=== PATIENT | female | born 1935 | race Caucasian/White ===

== ENCOUNTER 2017-05-24 14:22 | Day surgery (SDC) | payer MEDICARE ==
[~2017-05-24 14:22] MED LIST: HYDR-2768; LEVO.05
[2017-05-24 14:55] VITALS: BP 123/82; PULSE 59; RESP 20; TEMP 97.4; O2SAT 93
[2017-05-24] MEDS ORDERED: ASPI81CH37 CHEW (15:16)
[2017-05-24] MEDS ORDERED: ANAS1TAB PO (15:16)
[2017-05-24] MEDS ORDERED: LEVO75TA3 PO (15:16)
[2017-05-24] MEDS ORDERED: PROP10TA6 PO (15:16)
--- NOTE | 2017-05-25 08:52 | RADRPT ---
EXAM DATE/TIME: 05/24/2017 15:19 [facility] COMPARISON : No previous studies available for comparison. INDICATIONS : Abdominal pain. Patient has known vascular disease with a stenosis of the SMA. Does not report classi c findings of mesenteric ischemia, however. OBJECTIVE: Temperature: 97.4 Heart Rate: 59 Blood Pressure: 123/82 Respiratory: 20 Oximetry: 93 PNEUMONIA VACCINE: NO HISTORY OF PRESENT ILLNESS: ? PAST MEDICAL HISTORY : 1. Hypertension. 2. Arthritis. PAST SURGICAL HISTORY : 1. Appendectomy. 2. Hysterectomy. 3. Cholecystectomy. 4. Carotid endarterectomy. right 5. right iliac stent 6. cataract removal SOCIAL HISTORY : ALLERGIES: 1. Sulfa MEDICATIONS: 1. Lciksjp28 mg q.d. 2. levothyroxine 75 mcg q.d. 3. propranolol 10 mg q.d. 4. anastrozole 1 mg q.d. PHYSICAL EXAMINATION: Frail, thin 81-year-old in no acute distress IMAGING STUDIES: Patient's imaging studies are over 10 years old and currently not available for comparison. As Jakob Her was a patient of mine at that time, I do remember that she had rather extensive vascular disea se and has since undergone right carotid endarterectomy for crescendo TIAs. Patient also had peripher al vascular disease and a high-grade stenosis of the SMA according to my report from the mid 1999. ASSESSMENT: Patient has definitely lost weight in the 10 year interval since I last saw her. Patient herself denies postprandial abdominal pain but I believe has some difficulty recalling recent events. Her daughters claims that the abdominal pain has gotten to a point where it is affecting her health and weight. I have asked the daughter to try to determine the relationship between eating and abdominal discomfort to aid in the decision making process. PLAN: CTA of the abdomen to assess mesenteric vessels. Previous studies are approximately 10 years old. Daughter while help assess the relationship of eating and abdominal pain. 1. Will get back with the patient and her daughter once the CT is available. 2. Discussed the plan of action with Dr. Albino Lund from vascular surgery. TIME SPENT: 30 minutes Hayden Jin MD on May 25, 2017 at 8:38 Board Certified Radiologist. This report was verified electronically.
== END 2017-05-24 16:28 | disposition home or self-care (01) ==
LOC: HROP 14:22 → HRIP 14:25 → HROP 16:28
PROVIDERS: ATTEND Surgery Vascular Surgery
DX: R10.9 Unspecified abdominal pain (principal); Z86.79 Personal history of other diseases of the circulatory system
CPT/HCPCS: 99213; G0463

== ENCOUNTER 2017-07-14 08:02 | Inpatient (IN) | payer MEDICARE ==
[~2017-07-14] VITALS: Ht 165.1 cm; Wt 61.3 kg
[2017-07-14] VITALS (7 sets, daily range): BP systolic 128–155; BP diastolic 73–76; PULSE 59–73; RESP 16–20; TEMP 97.4–97.8; O2SAT 96–97
[~2017-07-14 08:02] MED LIST changes: +ANAS1TAB PO; +ASPI81CH6 CHEW; -HYDR-2768; -LEVO.05; +LEVO75TA3 PO; +PROP10TA6 PO
[2017-07-14] MEDS ORDERED: IODIXANOL 320 MG/ML 50 ML VIAL (for RAD SPEC) I-ARTERIAL ONE (08:03)
[2017-07-14] MEDS ORDERED: GABA100C4 PO (09:21)
[2017-07-14] MEDS ORDERED: SODIUM CHLOR 0.9% 1000 ML INJ 1,000 ML IV SCH (09:30)
[2017-07-14 09:32] LABS: BASOPHIL % 0.8 % (0.0-2.0); EOSINOPHIL # 0.1 TH/MM3 (0-0.4); EOSINOPHIL % 2.3 % (0.0-4.0); HEMATOCRIT 38.9 % (35.0-46.0); HEMO FLAGS DIFF FINAL; LYMPH % 23.7 % (9.0-44.0); LYMPHOCYTE # 1.4 TH/MM3 (1.0-4.8); MEAN CELL VOLUME 98.6 FL (80.0-100.0); MEAN CORPUSCULAR HEMOGLOBIN 33.1 PG (27.0-34.0); MEAN CORPUSCULAR HGB CONC 33.6 % (32.0-36.0); MONO % 7.6 % (0.0-8.0); NEUT % 65.6 % (16.0-70.0); PLATELET COUNT 202 TH/MM3 (150-450); RED BLOOD COUNT 3.94 MIL/MM3 (4.00-5.30); RED CELL DISTRIBUTION WIDTH 15.7 % (11.6-17.2); WHITE BLOOD COUNT 6.1 TH/MM3 (4.0-11.0)
[2017-07-14 09:40] LABS: APTT (PATIENT) 24.6 SEC (24.3-30.1); PROTHROMBIN TIME - PATIENT 10.6 SEC (9.8-11.6)
[2017-07-14 09:54] LABS: BICARBONATE 25.7 MEQ/L (21.0-32.0); POTASSIUM 3.5 MEQ/L (3.5-5.1)
[2017-07-14] MEDS ORDERED: MIDAZOLAM HCL 5 MG/5 ML VIAL ONE (11:07)
[2017-07-14] MEDS ORDERED: MIDAZOLAM HCL 2 MG/2 ML VIAL ONE (11:57)
[2017-07-14] MEDS ORDERED: HEPARIN SODIUM - IV 10,000 UNITS/10 ML VIAL ONE (11:59)
[2017-07-14] MEDS ORDERED: HEPARIN-D5W 25,000 U/250 ML 250 ML ONE (12:26)
[2017-07-14] MEDS: HEPARIN INJ 1,000 UNITS in SODIUM CHLORID 0.9% 500 ML INJ 500 ML I-ARTERIAL SCH (12:45)
[2017-07-14] MEDS ORDERED: MORPHINE SULFATE 4 MG/ML INJ IV PUSH PRN (12:45)
[2017-07-14] MEDS ORDERED: ONDANSETRON HCL 4 MG/2 ML VIAL IV PUSH PRN (12:45)
[2017-07-14] MEDS ORDERED: HEPARIN INJ 1,000 UNITS in SODIUM CHLORID 0.9% 500 ML INJ 500 ML IART PRN (12:45)
[2017-07-14] MEDS ORDERED: HEPARIN INJ 1,000 UNITS in SODIUM CHLORID 0.9% 500 ML INJ 500 ML IV PRN (12:45)
[2017-07-14] MEDS ORDERED: HEPARIN-D5W 25,000 U/250 ML 250 ML IV SCH (12:45)
--- NOTE | 2017-07-14 12:58 | PD.RAD ---
Post Procedure Progress Note Pre Procedure Diagnosis: (1) Claudication of both lower extremities Post Procedure Diagnosis: (1) Claudication of both lower extremities Procedure Date: Jul 14, 2017 Supervising Radiologist: Hayden Jin Proceduralist/Assist: Nata Gomez, RT(R), Lacy Senior, RT(R)(CV) Anesthesia: Local, Analgesia, Conscious Sedation Plan of Activity Patient to Unit: ROPU Patient Condition: Good See PACS Report for procedural detail/treatment Vascular-Arterial Procedure Procedure 1 Procedure Site: Right Leg (Common iliac), Left Leg (Junction of common and external iliac) Procedure(s): Angiogram, Angioplasty (Right iliac stent), Stent Placement ( Left common-external iliac junction), Thrombolysis (Right common iliac) Access Access Site(s): Right Femoral Artery Sheath(s) Remaining: Right Femoral Artery Findings: Right iliac stent occluded. Traversed and common iliac artery angioplastied to 8mm. High grade stenosis junction of left external and common iliac artery post stent and 8mm PRODUCT SAFETY HEAD. > 80 mmHg gradient Hayden Jin MD Jul 14, 2017 12:58
[2017-07-14] MEDS: SODIUM CHLOR 0.9% 1000 ML INJ 1,000 ML IV SCH (13:00)
--- NOTE | 2017-07-14 13:51 | PD.CONS ---
[facility] Service Critical Care Medicine Consult Requested By Dr. Jin Reason for Consult s/p mesenteric and right iliac angiogram/angioplasty s/p stent placement to Left common-external iliac junction for high-grade stenosis, s/p unsuccessful thrombectomy attempt of right iliac stent occlusion Intra arterial TPA infusion Hypertensive urgency Primary Care Physician Non-Staff History of Present Illness Patient is a 82-year-old female with past medical history of right carotid stenosis and carotid endarterectomy, CVA in 2005, severe PAD, history of iliac stent, hypothyroidism, hypertension, COPD and continued smoking who underwent mesenteric and right iliac angiogram/angioplasty today 07/14/17. Patient had stent placement to Left common-external iliac junction, for high- grade stenosis. She has a history of right iliac stent occlusion. Thrombectomy attempt of right iliac stent occlusion was not successful. Patient was started on intra-arterial TPA infusion, along with IV Heparin and was admitted to [facility]. Plan is to attempt stent thrombectomy after 24 hours TPA infusion I evaluated the patient she is comfortable slightly anxious and hypertensive, SBP 190-200. Currently Home medications had been restarted. Place patient on hydralazine 20 mg every 4 hours when necessary IV for hypertension, SBP >160. Because of TPA infusion patient will need tight blood pressure control will also start Cardene if blood pressure is remaining sustained above 160. Review of Systems ROS Limitations: Other (as per HPI) Past Family Social History Allergies: Coded Allergies: Sulfa (Sulfonamide Antibiotics) (Verified Allergy, Unknown, 05/24/17) Past Medical History Right MCA stroke in 2005 Hypothyroidism Hypertension Dyslipidemia Tobacco abuse COPD Right ICA stenosis Past Surgical History Appendectomy Hysterectomy Cholecystectomy Right Carotid endarterectomy Right iliac stent Cataract surgery Reported Medications [id number] mg q.d. Levothyroxine 75 mcg q.d. Propranolol 10 mg q.d. Anastrozole 1 mg q.d. Active Ordered Medications Intra-arterial TPA infusion Family History Not contributory Social History Smokes about half pack of cigarettes daily. Drinks 1-2 glasses of wine daily Physical Exam Vital Signs Vital Signs Date Time Temp Pulse Resp B/P (MAP) Pulse Ox O2 Delivery O2 Flow Rate FiO2 07/14/17 09:07 97 Room Air 07/14/17 08:28 97.4 68 20 128/76 (93) 97 Physical Exam GENERAL: Well-nourished, well-developed female lying in bed, slightly anxious SKIN: Warm and dry. HEAD: Normocephalic. EYES: No scleral icterus. No injection or drainage. NECK: Supple, trachea midline. No JVD or lymphadenopathy. CARDIOVASCULAR: Regular rate and rhythm without murmurs, gallops, or rubs. Hypertensive RESPIRATORY: Breath sounds equal bilaterally. No accessory muscle use. GASTROINTESTINAL: Abdomen soft, non-tender, nondistended. MUSCULOSKELETAL: No cyanosis, or edema. Right groin site without hematoma. Bilateral dorsalis pedis pulses dopplerable NEURO EXAM: Awake alert oriented. No focal deficits Laboratory Laboratory Tests Test 07/14/17 09:17 White Blood Count 6.1 Red Blood Count 3.94 Hemoglobin 13.0 Hematocrit 38.9 Mean Corpuscular Volume 98.6 Mean Corpuscular Hemoglobin 33.1 Mean Corpuscular Hemoglobin Concent 33.6 Red Cell Distribution Width 15.7 Platelet Count 202 Mean Platelet Volume 7.9 Neutrophils (%) (Auto) 65.6 Lymphocytes (%) (Auto) 23.7 Monocytes (%) (Auto) 7.6 Eosinophils (%) (Auto) 2.3 Basophils (%) (Auto) 0.8 Neutrophils # (Auto) 4.0 Lymphocytes # (Auto) 1.4 Monocytes # (Auto) 0.5 Eosinophils # (Auto) 0.1 Basophils # (Auto) 0.0 CBC Comment DIFF FINAL Differential Comment Prothrombin Time 10.6 Prothromb Time International Ratio 1.0 Activated Partial Thromboplast Time 24.6 Blood Urea Nitrogen 22 Creatinine 0.87 Random Glucose 105 Calcium Level 9.6 Sodium Level 142 Potassium Level 3.5 Chloride Level 108 Carbon Dioxide Level 25.7 Anion Gap 8 Estimat Glomerular Filtration Rate 62 Result Diagram: 07/14/1791607/14/1717 Imaging Reviewed Assessment and Plan Assessment and Plan ASSESSMENT: s/p mesenteric and right iliac angiogram/angioplasty s/p stent placement to Left common-external iliac junction for high-grade stenosis, s/p unsuccessful thrombectomy attempt of right iliac stent occlusion Intra arterial TPA infusion Hypertensive urgency Right MCA stroke in 2005 Right ICA stenosis s/p carotid endarterectomy Hypothyroidism Hypertension Dyslipidemia Tobacco abuse COPD PLAN: NEURO: - When necessary morphine for pain control - Monitor neuro status closely while on TPA infusion RESP: - Nasal cannula oxygen if needed - DuoNeb every 6 hours when necessary CV: - Normal saline IV fluids 30 ml per hour - Cardene gtt, Hypralazine IV PRN for SBP >160 - TPA, Heparin gtt per Dr. Jin - Monitor CBC fibrinogen level PTT GI: - Clear liquid diet, IV famotidine : - Monitor renal function closely. Maintain Borges catheter. ID: - Monitor for infection HEME: - Monitor CBC fibrinogen level PTT - Monitor for right groin hematoma ENDO: - Electrolyte replacement protocol. Sliding scale insulin if needed PROPH: - currently on IV TPA/heparin. IV famotidine LINES: - Utilize peripheral IVs CC time 35 min Code Status Full Sailaja Ochoa MD Jul 14, 2017 13:51
[2017-07-14] MEDS ORDERED: POTASSIUM PHOSPHATE MONOBASIC 500 MG TAB PO/TUBE PRN (14:00)
[2017-07-14] MEDS ORDERED: MAGNESIUM SULFATE INJ 4 GM in SODIUM CHLORIDE 0.9% INJ 92 ML IV PRN (14:00)
[2017-07-14] MEDS ORDERED: POTASSIUM PHOSPHATE INJ 30 MMOL in SODIUM CHLOR 0.9% 250 ML INJ 250 ML IV PRN (14:00)
[2017-07-14] MEDS ORDERED: POTASSIUM PHOSPHATE MONOBASIC 500 MG TAB PO PRN (14:00)
[2017-07-14] MEDS ORDERED: POTASSIUM CHLOR 20 MEQ PREMIX 100 ML IV PRN ×2 (14:00)
[2017-07-14] MEDS ORDERED: SODIUM PHOSPHATE INJ 30 MMOL in SODIUM CHLOR 0.9% 250 ML INJ 240 ML IV PRN (14:00)
[2017-07-14] MEDS ORDERED: MAGNESIUM OXIDE 400 MG TAB PO PRN (14:00)
[2017-07-14] MEDS ORDERED: MAGNESIUM SULFATE INJ 2 GM in SODIUM CHLORIDE 0.9% INJ 96 ML IV PRN (14:00)
[2017-07-14] MEDS ORDERED: POTASSIUM CHLOR 40 MEQ PREMIX 100 ML IV PRN ×2 (14:00)
[2017-07-14] MEDS: hydrALAZINE HCL 20 MG/ML VIAL IV PUSH PRN (14:11)
[2017-07-14] MEDS: PROPRANOLOL HCL 10 MG TAB PO SCH (14:45)
[2017-07-14] MEDS ORDERED: niCARdipine INJ 25 MG in SODIUM CHLOR 0.9% 250 ML INJ 240 ML IV PRN (14:45)
[2017-07-14] MEDS ORDERED: RESP: ALBUTEROL 2.5 MG/IPRATROPIUM 0.5 MG NEB (PRN) NEB (15:15)
[2017-07-14] MEDS: THIAMINE INJ 100 MG in SODIUM CHLORIDE 0.9% INJ 100 ML IV SCH (16:38)
[2017-07-14] MEDS: FAMOTIDINE 20 MG/2 ML VIAL IV PUSH SCH ×2 (16:40→21:30)
[2017-07-14 19:09] LABS: AUTOMATED NEUTROPHIL # 4.5 TH/MM3 (1.8-7.7); BASOPHIL % 0.4 % (0.0-2.0); EOSINOPHIL # 0.2 TH/MM3 (0-0.4); EOSINOPHIL % 2.5 % (0.0-4.0); HEMATOCRIT 37.8 % (35.0-46.0); HEMO FLAGS DIFF FINAL; LYMPH % 27.2 % (9.0-44.0); MEAN CELL VOLUME 98.3 FL (80.0-100.0); MEAN CORPUSCULAR HEMOGLOBIN 33.5 PG (27.0-34.0); MEAN CORPUSCULAR HGB CONC 34.1 % (32.0-36.0); MONO % 8.5 % (0.0-8.0); NEUT % 61.4 % (16.0-70.0); PLATELET COUNT 173 TH/MM3 (150-450); RED BLOOD COUNT 3.85 MIL/MM3 (4.00-5.30); RED CELL DISTRIBUTION WIDTH 15.5 % (11.6-17.2); WHITE BLOOD COUNT 7.4 TH/MM3 (4.0-11.0)
[2017-07-14 19:18] LABS: APTT (PATIENT) 29.2 SEC (24.3-30.1)
[2017-07-14] MEDS: GABAPENTIN 100 MG CAP PO SCH (21:29)
[2017-07-14] MEDS: MORPHINE SULFATE 4 MG/ML INJ IV PUSH PRN (21:31)
[2017-07-14] MEDS: CATHFLO ACTIVASE INJ 10 MG in SODIUM CHLORID 0.9% 500 ML INJ 500 ML I-ARTERIAL PRN (21:34)
[2017-07-15] VITALS (13 sets, daily range): BP systolic 105–145; BP diastolic 55–83; PULSE 59–92; RESP 16–20; TEMP 97.3–98; O2SAT 80–100
[2017-07-15 01:17] LABS: AUTOMATED NEUTROPHIL # 4.7 TH/MM3 (1.8-7.7); BASOPHIL # 0.1 TH/MM3 (0-0.2); BASOPHIL % 0.8 % (0.0-2.0); EOSINOPHIL # 0.1 TH/MM3 (0-0.4); EOSINOPHIL % 2.1 % (0.0-4.0); HEMATOCRIT 32.4 % (35.0-46.0); HEMO FLAGS DIFF FINAL; LYMPH % 21.3 % (9.0-44.0); LYMPHOCYTE # 1.5 TH/MM3 (1.0-4.8); MEAN CELL VOLUME 97.6 FL (80.0-100.0); MEAN CORPUSCULAR HEMOGLOBIN 33.5 PG (27.0-34.0); MEAN CORPUSCULAR HGB CONC 34.3 % (32.0-36.0); MONO % 7.9 % (0.0-8.0); NEUT % 67.9 % (16.0-70.0); PLATELET COUNT 162 TH/MM3 (150-450); RED BLOOD COUNT 3.33 MIL/MM3 (4.00-5.30); RED CELL DISTRIBUTION WIDTH 15.1 % (11.6-17.2); WHITE BLOOD COUNT 6.9 TH/MM3 (4.0-11.0)
[2017-07-15 01:48] LABS: APTT (PATIENT) 29.6 SEC (24.3-30.1)
[2017-07-15] MEDS: hydrALAZINE HCL 20 MG/ML VIAL IV PUSH PRN (05:03)
[2017-07-15] MEDS: LEVOTHYROXINE SODIUM 75 MCG TAB PO SCH (05:40)
[2017-07-15] MEDS: SODIUM CHLOR 0.9% 1000 ML INJ 1,000 ML IV SCH (06:01)
[2017-07-15] MEDS: MORPHINE SULFATE 4 MG/ML INJ IV PUSH PRN (06:14)
[2017-07-15] MEDS: CATHFLO ACTIVASE INJ 10 MG in SODIUM CHLORID 0.9% 500 ML INJ 500 ML I-ARTERIAL PRN (06:57)
[2017-07-15 07:15] LABS: APTT (PATIENT) 29.2 SEC (24.3-30.1)
[2017-07-15 07:53] LABS: AUTOMATED NEUTROPHIL # 5.8 TH/MM3 (1.8-7.7); BASOPHIL % 0.6 % (0.0-2.0); EOSINOPHIL # 0.1 TH/MM3 (0-0.4); EOSINOPHIL % 0.8 % (0.0-4.0); HEMATOCRIT 32.2 % (35.0-46.0); HEMO FLAGS DIFF FINAL; LYMPH % 12.6 % (9.0-44.0); LYMPHOCYTE # 0.9 TH/MM3 (1.0-4.8); MEAN CELL VOLUME 97.8 FL (80.0-100.0); MEAN CORPUSCULAR HEMOGLOBIN 33.7 PG (27.0-34.0); MEAN CORPUSCULAR HGB CONC 34.5 % (32.0-36.0); MONO % 6.3 % (0.0-8.0); NEUT % 79.7 % (16.0-70.0); PLATELET COUNT 155 TH/MM3 (150-450); RED CELL DISTRIBUTION WIDTH 15.2 % (11.6-17.2); WHITE BLOOD COUNT 7.3 TH/MM3 (4.0-11.0)
[2017-07-15] MEDS: FAMOTIDINE 20 MG/2 ML VIAL IV PUSH SCH ×2 (08:26→21:40)
[2017-07-15] MEDS: THIAMINE INJ 100 MG in SODIUM CHLORIDE 0.9% INJ 100 ML IV SCH (08:26)
[2017-07-15] MEDS: GABAPENTIN 100 MG CAP PO SCH ×2 (08:27→21:40)
[2017-07-15] MEDS: PROPRANOLOL HCL 10 MG TAB PO SCH (08:27)
--- NOTE | 2017-07-15 08:49 | RADRPT ---
EXAM DATE/TIME: 07/14/2017 12:03 [facility] COMPARISON: No previous studies available for comparison. INDICATIONS : Patient with occluded rt ilaic stent.Patient has bilateral leg pain. MEDICAL HISTORY : 1. HTN 2. Arthritis SURGICAL HISTORY : 1. Appendectomy 2. Hysterectomy 3. cholecysectomy 4. rt carotid endarerctomy 5. rt iliac stent 6. cataract removal ENCOUNTER: Initial ACUITY: 4-6 months PAIN SCORE: FLUORO TIME: 12.4 minutes IMAGE SERIES: 11 ACCESS SITE: Right Femoral artery SEDATION TIME: 60 minutes CONTRAST: 1.) 4 cc Visipaque (iodixanol) MEDICATION(S): 1.) 4 mg midazolam (Versed) IV 2.) 100 mcg fentanyl (Sublimaze) IV 3.) 2000 units Heparin IV DEVICE(S): 1.) Left common iliac artery 8 x 30 everflex stent (self expanding) 2.) Left common iliac artery 8 x 20mm MANAGER WILLOW balloon negative developer 3.) Right common iliac artery 10 cm EV3 Infusion catheter PROCEDURE : 1. Ultrasound-guided puncture of the access site. 2. Conscious sedation with continuous EKG and oximetry monitoring. 3. Angiography of the left external iliac artery. 4. Stent and balloon angioplasty, junction of the left common and external iliac arteries. 5. hemodynamic pressures, left common iliac 5. Infusion for thrombolysis The risks, benefits and alternatives to the procedure were explained and verbal and written consent w as obtained. The site was prepped in sterile fashion. Full sterile technique was used, including ca p, mask, sterile gloves and gown and a large sterile sheet. Hand hygiene and 2% chlorhexidine and/or betadine/alcohol prep was utilized per protocol for cutaneous antisepsis. Sterile gel and sterile p robe cover were utilized for ultrasound guidance. The skin and subcutaneous tissues were infiltrated with local anesthetic solution. With ultrasound and fluoroscopic guidance the prescribed common femoral artery was punctured and a va scular sheath was placed. A hockey-stick catheter and Glidewire were advanced through the right groin sheath. Brief attempt was made to traverse the serial stents in the right common iliac. This was unsuccessful and a subsequent contrast injection demonstrated a diminutive external iliac and hypogastric with no flow identified through the common iliac artery stents. The occluded stents were traversed with the hockey-stick cath eter and Roadrunner Glidewire. Catheter and wire were advanced into the contralateral iliac system. C ontrast injection in an WAITE projection demonstrated a apparent high-grade stenosis in the distal comm on iliac artery. Pressure measurements across the stenosis demonstrate a significant gradient of appr oximately 80 mmHg with a prestenotic systolic pressure of 132 and a post stenotic systolic pressure o f 51. Therefore, right groin sheath was exchanged for a 55 cm, 6 New Zealander Rabbe and a 3 cm by 8mm EverF amilcar stent was advanced across the lesion and deployed. This showed persistent narrowing of the stenos is which was subsequently balloon dilated to 8 mm with an excellent angiographic result and restorati on of wrist inflow to the left lower extremity. The Rabbe sheath was subsequently removed and replaced with a 7 New Zealander, 10 cm side-port clinical fletcher th. The hockey-stick catheter was advanced over the wire and into the distal abdominal aorta. Contras t injection showed reestablished flow through the occluded stent probably from the Rabbe sheath utili zed to facilitate left iliac artery stent. Extremely high-grade stenosis at the junction of the dista l aorta and the origin of the right iliac artery stent. This was balloon dilated to 8 mm with some im provement of the antegrade flow through the previously occluded sheath. Again, the external iliac rem ains a diminutive probably due to the chronic lack of inflow. The previous CTA abdomen and runoff dem onstrated extensive thrombus throughout the right iliac stent. To minimize the risk of distal emboliz ation, TPA infusion was initiated through a 10 cm side-port catheter. This will be run overnight and the patient will be reevaluated in the a.m. Conscious sedation was performed with the prescribed dosages and duration as above in the presence of an independent trained radiology nurse to assist in the monitoring of the patient. EKG and oximetry remained stable throughout the procedure. CONCLUSION: 1. Uncomplicated initiation of thrombolytic therapy for the occluded right iliac stent as above. 2. High-grade, hemodynamically significant stenosis of the distal left common iliac artery successful ly treated with 8mm self-expanding stent and balloon angioplasty as detailed above. Hayden Jin MD on July 15, 2017 at 8:37 Board Certified Radiologist. This report was verified electronically.
[2017-07-15] MEDS ORDERED: ANASTROZOLE 1 MG TAB PO SCH (09:00)
--- NOTE | 2017-07-15 09:17 | HHI.CCPN ---
Subjective Remarks/Hospital Course Patient is a 82-year-old female with past medical history of right carotid stenosis and carotid endarterectomy, CVA in 2006, severe PAD, history of iliac stent, hypothyroidism, hypertension, COPD and continued smoking who underwent mesenteric and right iliac angiogram/angioplasty today 07/14/17. Patient had stent placement to Left common-external iliac junction, for high- grade stenosis. She has a history of right iliac stent occlusion. Thrombectomy attempt of right iliac stent occlusion was not successful. Patient was started on intra-arterial TPA infusion, along with IV Heparin and was admitted to [facility]. Plan is to attempt stent thrombectomy after 24 hours TPA infusion I evaluated the patient she is comfortable slightly anxious and hypertensive, SBP 190-200. Currently Home medications had been restarted. Place patient on hydralazine 20 mg every 4 hours when necessary IV for hypertension, SBP >160. Because of TPA infusion patient will need tight blood pressure control will also start Cardene if blood pressure is remaining sustained above 160. SUBJ 07/15/17: Bleeding from R groin access site. Invasive radiology was notified-pressure bandage applied and TPA and heparin continued per IR. CBC fibrinogen stable. Plan for IR intervention today Objective Vital Signs Date Time Temp Pulse Resp B/P (MAP) Pulse Ox O2 Delivery O2 Flow Rate FiO2 07/15/17 08:24 78 07/14/17 14:00 96 Room Air 07/14/17 13:30 97.8 16 155/73 (100) Intake and Output 07/15/17 07/15/17 07/16/17 08:00 16:00 00:00 Intake Total 1560 ml Output Total 450 ml Balance 1110 ml Result Diagram: 07/15/17 0725 07/14/17 0917 Imaging Reviewed Objective Remarks GENERAL: Well-nourished, well-developed female lying in bed SKIN: Warm and dry. HEAD: Normocephalic. EYES: No scleral icterus. No injection or drainage. NECK: Supple, trachea midline. No JVD or lymphadenopathy. CARDIOVASCULAR: Regular rate and rhythm without murmurs, gallops, or rubs. Hypertensive RESPIRATORY: Breath sounds equal bilaterally. No accessory muscle use. GASTROINTESTINAL: Abdomen soft, non-tender, nondistended. MUSCULOSKELETAL: Right groin site with active oozing, pressure dressing applied. Bilateral dorsalis pedis pulses dopplerable NEURO EXAM: Awake alert oriented. No focal deficits A/P Assessment and Plan ASSESSMENT: s/p mesenteric and right iliac angiogram/angioplasty s/p stent placement to Left common-external iliac junction for high-grade stenosis, s/p unsuccessful thrombectomy attempt of right iliac stent occlusion Intra arterial TPA infusion Hypertensive urgency Right MCA stroke in 2006 Right ICA stenosis s/p carotid endarterectomy Hypothyroidism Hypertension Dyslipidemia Tobacco abuse COPD PLAN: NEURO: - When necessary morphine for pain control - Monitor neuro status closely while on TPA infusion, no change in neuro exam - Supplement thiamine for daily alcohol use RESP: - Nasal cannula oxygen if needed - DuoNeb every 6 hours when necessary - Tobacco cessation counselling given CV: - Normal saline IV fluids 30 ml per hour - Cardene gtt, Hypralazine IV PRN for SBP >160 - TPA, Heparin gtt per Dr. Jin - Monitor CBC fibrinogen level PTT - Home medication atenolol started GI: - Clear liquid diet, now NPO for IR. IV famotidine : - Monitor renal function closely. Maintain Borges catheter. ID: - Monitor for infection HEME: - Monitor CBC fibrinogen level PTT. Monitor for expansion right groin hematoma - Bleeding should stop after completion of TPA and Heparin gtt. No further intervention warranted at this time ENDO: - Electrolyte replacement protocol. Sliding scale insulin if needed PROPH: - currently on IV TPA/heparin. IV famotidine LINES: - Utilize peripheral IVs Level 3 follow up note Sailaja Ochoa MD Jul 15, 2017 09:17
[2017-07-15] MEDS ORDERED: MIDAZOLAM HCL 2 MG/2 ML VIAL ONE ×2 (10:00)
[2017-07-15] MEDS: HEPARIN INJ 1,000 UNITS in SODIUM CHLORID 0.9% 500 ML INJ 500 ML I-ARTERIAL SCH (12:45)
[2017-07-15] MEDS ORDERED: HEPARIN-NS/PF INJ 500 ML IART SCH (12:57)
--- NOTE | 2017-07-15 13:01 | PD.RAD ---
Post Procedure Progress Note Pre Procedure Diagnosis: (1) Claudication of both lower extremities Post Procedure Diagnosis: (1) Claudication of both lower extremities Procedure Date: Jul 15, 2017 Supervising Radiologist: Hayden Jin Proceduralist/Assist: Amanda Sandoval RT(R), RT Wanda(R) Anesthesia: Local, Analgesia, Conscious Sedation Plan of Activity Patient to Unit: ROPU Patient Condition: Good See PACS Report for procedural detail/treatment Vascular-Arterial Procedure Procedure 1 Procedure Site: Right Leg (Iliac system), Left Leg (Iliac system) Procedure(s): Angioplasty, Stent Placement (x 3 - Kissing iliacs and right external iliac) Access Access Site(s): Right Femoral Artery, Left Femoral Artery Sheath(s) Remaining: Right Femoral Artery, Left Femoral Artery Findings: Mormon of inflow. Single embolus to right CAR CONDITIONER. Consulted Dr. Lund from vascular surgery for embolectomy. Bilateral pedal pulses. Palpable left, dopplerable right. Hayden Jin MD Jul 15, 2017 13:01
[2017-07-15] MEDS ORDERED: HEPARIN SODIUM - SQ 10,000 UNITS/ML VIAL ONE (13:13)
[2017-07-15] MEDS ORDERED: HEPARIN SODIUM - IV 10,000 UNITS/10 ML VIAL ONE (13:13)
[2017-07-15] MEDS ORDERED: BUPIVACAINE/EPINEPHRINE 0.5% PF 30 ML VIAL ONE ×2 (13:13→14:16)
[2017-07-15] MEDS ORDERED: IODIXANOL 320 MG/ML 50 ML VIAL (for RAD SPEC) I-ARTERIAL ONE (14:01)
[2017-07-15] MEDS ORDERED: DO NOT ADM ANY ANTICOAGULANT DRUGS PRN (16:00)
--- NOTE | 2017-07-15 16:43 | RADRPT ---
EXAM DATE/TIME: 07/15/2017 11:07 [facility] COMPARISON: No previous studies available for comparison. INDICATIONS : Patient with history of bilateral lower extremity claudication in need of angioplasty and stent place ment. MEDICAL HISTORY : Right ICA stenosis, Right MCA stroke in 2006, HTN, HLD, Hypothyroidism, Tobacco abuse, COPD, Severe P AD SURGICAL HISTORY : Cholecystectomy, Right carotid endarterectomy, Right iliac stent ENCOUNTER: Subsequent ACUITY: 4-6 months PAIN SCORE: 0/10 FLUORO TIME: 13.3 minutes IMAGE SERIES: 14 ACCESS SITE: Left Femoral artery SEDATION TIME: 60 minutes CONTRAST: 1.) 130 cc Visipaque (iodixanol) MEDICATION(S): 1.) 2 mg midazolam (Versed) IV 2.) 150 mcg fentanyl (Sublimaze) IV DEVICE(S): 1.) Right common iliac stent DEBURRING TECHNICIAN balloon Resistor Testing Machine Operator [id number] 75CM 2.) Right common iliac artery EV3 Visi-Pro [id number] 80CM stent (balloon expanding) 3.) Left common iliac artery EV3 Visi-Pro [id number] 135CM stent (ballooon expanding) 4.) Right common iliac artery EV3 EverFlex [id number] 80CM stent (self expanding) PROCEDURE: 1. Followup thrombolysis 2. Conscious sedation with continuous EKG and oximetry monitoring. Following TPA infusion the patient returned to the angiography suite for reevaluation. The images demonstrate interval clearing of some of the thrombus within the previously occluded right iliac stent. There was still some filling defect of the proximal and distal ends of the stent the st enosis persisted distally. Therefore, 8 mm balloon was used to further open up the existing stent. Pe rsistent stenosis distally, however. Left groin access was obtained with ultrasound guidance. 6 Croatian sheath was placed over the wire. Bi lateral 8 mm x 27 mm balloon expandable stents were advanced into the central portion of the iliac ar joe. Both stents were deployed simultaneously an 8 "kissing" fashion. Contrast injection demonstrate d shinto of antegrade flow into the proximal right iliac system with maintenance of flow in the left iliac system. However, there was very sluggish outflow in the right iliac. Since the outflow fro m the right sided stent was still highly stenotic with areas of irregularity, an additional 8 mm x 4 cm self-expanding stent was deployed in this location with shinto of widely patent flow to the r ight common femoral artery. Sluggish runoff persisted. Contrast injection through the side-port of th e sheath showed a filling defect in the common femoral artery adjacent to the sheath. This was felt t o represent a chronic thrombus that embolized to the common femoral artery. With the kissing stent co nfiguration at the bifurcation, there was no way to access this area antegrade and I was reluctant to pull the sheath back below the filling defect for fear of embolizing the more distal runoff vessels. As such, both sheaths were left in the groin. I contacted Dr. Albino Lund from vascular surgery and celia kelley with him for right femoral endarterectomy/embolectomy. The patient tolerated the procedure well and there were no complications. Conscious sedation was perf ormed with the prescribed dosages and duration as above in the presence of an independent trained rad iology nurse to assist in the monitoring of the patient. EKG and oximetry remained stable throughout the procedure. CONCLUSION: 1. Adequate response to overnight TPA with some resolution of the thrombus previously identified in t he chronically occluded right iliac stent. 2. Catholic of antegrade flow into the iliac systems bilaterally with kissing 8 mm stents as chai led above. 3. Extension of the right iliac stent into the external iliac to 2 regional irregularity and persiste nt chronic mural thrombus. 4. Well-circumscribed filling defect in the right common femoral artery may represent a chronic throm bus embolus or possibly a femoral plaque. Dr. Albino Lund from vascular surgery has been consult and f or femoral endarterectomy/embolectomy. Hayden Jin MD on July 15, 2017 at 15:51 Board Certified Radiologist. This report was verified electronically.
[2017-07-15] MEDS ORDERED: CLOPIDOGREL 75 MG TAB ONE (17:20)
[2017-07-15] MEDS: ASPIRIN EC 81 MG TABEC PO SCH (18:33)
[2017-07-15] MEDS ORDERED: MORPHINE SULFATE 4 MG/ML INJ IV PUSH PRN (18:45)
[2017-07-15] MEDS ORDERED: LACTATED RINGER'S 500 ML INJ IV SCH (18:45)
[2017-07-15] MEDS ORDERED: CLOPIDOGREL 75 MG TAB PO ONE (18:45)
[2017-07-15] MEDS ORDERED: ACETAMINOPHEN/HYDROcodone 325 MG/5 MG TAB PO PRN (18:45)
[2017-07-15] MEDS ORDERED: ONDANSETRON HCL 4 MG/2 ML VIAL IV PUSH PRN (18:45)
[2017-07-15] MEDS ORDERED: SODIUM CHLORIDE 0.9% FLUSH 10 ML FLUSH IV FLUSH PRN (18:45)
--- NOTE | 2017-07-15 19:56 | MB ---
cc: JALEESA JIN MD, JAMES DATE OF CONSULTATION: 07/15/2017. REASON FOR CONSULTATION: Right femoral artery thrombosis. HISTORY OF PRESENT ILLNESS: This 81-year-old hypertensive female smoker with hypercholesterolemia was hospitalized for endovascular revascularization. In 2010, she underwent a right common iliac stent placement. She has undergone previous left iliac stent placements as well. Dr. Jin performed aortofemoral arteriography outlining occlusion of the right common iliac stent and high-grade left iliac stenosis. He performed thrombolysis of the occluded right common iliac stent and earlier today bilateral iliac stenting. At the conclusion of right iliac stenting, he found occlusion of the right common femoral artery. We were asked to evaluate for surgical revascularization. Further historical details along with past medical and surgical history, medications and physical findings are detailed in the May 2017 office progress note. EXAMINATION: GENERAL: In general a well-developed, well-nourished 81-year-old female with somnolent affect due to IV sedation required for todays interventional procedure. She nonetheless awakens and responds to questions and commands. LUNGS: Lungs are symmetrically expanding clear. CARDIAC: Rhythm is sinus. No rubs or gallops. ABDOMEN: Abdomen is soft, nontender. No palpable aneurysm. EXTREMITIES: Hydrostatic sheaths are present within both groins. Femoral pulse is nonpalpable right, 2+ left. Doppler flow is robust, biphasic left pedal positions, monophasic on the right. The right foot is cool with diminished capillary refill and warmth. NEUROLOGIC: No gross focal deficit. I reviewed the angiographic films with Dr. Jin. Discussed clinical findings and treatment options with the patient and her son. We will proceed with emergent right femoral thrombo- endarterectomy. I explained the proposed procedure along with potential risks and possible complications. She and her son understand and have signed the consents for the proposed surgical intervention. Thank you for allowing me to participate in this nice lady's care. MD HENRI Buck/ROSY /4:24 PM /7:29 PM
[2017-07-15] MEDS: SODIUM CHLORIDE 0.9% FLUSH 10 ML FLUSH IV FLUSH SCH (21:00)
[2017-07-16] VITALS (29 sets, daily range): BP systolic 99–164; BP diastolic 51–96; PULSE 64–96; RESP 17–18; TEMP 97.8–98.5; O2SAT 96–98
[2017-07-16] MEDS: LEVOTHYROXINE SODIUM 75 MCG TAB PO SCH (05:54)
[2017-07-16] MEDS: SODIUM CHLORIDE 0.9% FLUSH 10 ML FLUSH IV FLUSH SCH ×2 (08:42→20:24)
[2017-07-16] MEDS: FAMOTIDINE 20 MG/2 ML VIAL IV PUSH SCH ×2 (08:42→20:23)
[2017-07-16] MEDS: GABAPENTIN 100 MG CAP PO SCH ×2 (08:42→20:23)
[2017-07-16] MEDS: PROPRANOLOL HCL 10 MG TAB PO SCH ×2 (08:43→15:29)
[2017-07-16] MEDS: ASPIRIN EC 81 MG TABEC PO SCH (08:43)
[2017-07-16] MEDS: THIAMINE INJ 100 MG in SODIUM CHLORIDE 0.9% INJ 100 ML IV SCH (08:43)
[2017-07-16] MEDS: CLOPIDOGREL 75 MG TAB PO SCH (08:43)
--- NOTE | 2017-07-16 09:49 | HHI.PR ---
Subjective Remarks Patient doing well overnight. No leg pain. No bleeding. She has complaints of breakthrough essential tremor. She takes propanolol at baseline, at home she takes this more than once a day total is prescribed as a daily a.m. treatment. No complaints of pain today. Objective Vital Signs Date Time Temp Pulse Resp B/P (MAP) Pulse Ox O2 Delivery O2 Flow Rate FiO2 07/16/17 07:45 97.9 92 18 104/51 (68) 97 07/16/17 06:12 80 07/16/17 05:19 80 07/16/17 04:23 75 07/16/17 03:20 97.8 80 17 99/55 (70) 97 07/16/17 03:20 73 07/16/17 02:24 77 07/16/17 01:07 64 07/16/17 00:03 66 07/15/17 23:57 71 07/15/17 23:57 98.0 75 18 108/58 (75) 100 07/15/17 22:00 74 07/15/17 21:00 84 07/15/17 20:00 74 07/15/17 19:30 92 07/15/17 19:30 97.9 80 19 107/55 (72) 98 07/15/17 17:33 Nasal Cannula 2.00 07/15/17 17:30 85 07/15/17 17:30 97.8 80 16 105/83 (90) 80 07/15/17 17:15 97.5 82 16 121/65 (83) 100 Nasal Cannula 2 07/15/17 17:00 82 15 120/66 (84) 98 Nasal Cannula 2 07/15/17 16:45 83 15 119/67 (84) 97 Nasal Cannula 2 07/15/17 16:30 84 15 116/67 (83) 96 Nasal Cannula 2 07/15/17 16:15 86 15 113/74 (87) 100 Nasal Cannula 3 07/15/17 16:00 97.6 85 18 109/63 (78) 99 Nasal Cannula 3 07/15/17 12:55 78 20 114/57 (76) 100 07/15/17 12:40 97.3 75 20 145/62 (89) 100 I/O 07/15/17 07/15/17 07/15/17 07/16/17 07/16/17 07/16/17 07:00 15:00 23:00 07:00 15:00 23:00 Intake Total 1560 ml 740 ml 980 ml Output Total 450 ml 1150 ml 400 ml Balance 1110 ml -410 ml 580 ml Intake Oral 100 ml 240 ml 480 ml IV Total 1460 ml 500 ml Other 500 ml Output Urine Total 450 ml 900 ml 400 ml Estimated Blood Loss 250 ml # Voids 0 # Bowel Movements 0 Result Diagram: 07/15/17 0725 07/14/17 0917 Objective Remarks GENERAL: NAD, A&Ox3 HEAD: Normocephalic. NECK: Supple, trachea midline. No lymphadenopathy. EYES: No scleral icterus. No injection or drainage. CARDIOVASCULAR: Regular rate and rhythm without murmurs, gallops, or rubs. RESPIRATORY: Breath sounds equal bilaterally. No accessory muscle use. GASTROINTESTINAL: Abdomen soft, non-tender, nondistended. MUSCULOSKELETAL: No cyanosis, or edema. SKIN: Warm and dry. Bandage at left groin. NEURO: No focal neurological deficitis. A/P Problem List: (1) Claudication of both lower extremities ICD Code: I73.9 - Peripheral vascular disease, unspecified Assessment and Plan Assessment and Plan 81-year-old female admitted secondary to iliac artery occlusion s/p mesenteric and right iliac angiogram/angioplasty s/p stent placement to Left common-external iliac junction for high-grade stenosis s/p unsuccessful thrombectomy attempt of right iliac stent occlusion s/p Intra arterial TPA infusion Doing well Vascular surgeon following Continue monitoring No signs of recurrent occlusion No signs of bleed Continue pain treatments Hypertensive urgency Resolved Right MCA stroke in 2005 Right ICA stenosis s/p carotid endarterectomy Follow clinically Hypothyroidism Continue supplementation Follows in outpatient Hypertension Continue baseline treatment Propanolol is into 2 separate doses Dyslipidemia No change to baseline treatment Follows in outpatient Tobacco abuse COPD No COPD exacerbation Patient counseled to quit smoking DVT prophylaxis Deferred for now given recent TPA Dontae Michelle MD Jul 16, 2017 09:49
[2017-07-16] MEDS ORDERED: PILL SPLITTER OTHER PRN (10:00)
--- NOTE | 2017-07-16 12:24 | MP ---
cc: RONALD LUND DATE OF SURGERY: 07/15/2017. PREOPERATIVE DIAGNOSIS: Right femoral artery thrombosis status post endovascular revascularization. POSTOPERATIVE DIAGNOSIS: Right femoral artery thrombosis status post endovascular revascularization. OPERATIVE PROCEDURE PERFORMED: Right femoral endarterectomy with bovine patch angioplasty. SURGEON: Ronald Lund M.D. MISDRAW HAND: KALIA Vazquez. ANESTHESIA: LMA / local DESCRIPTION OF THE OPERATIVE PROCEDURE: With the patient in the supine position and under IV sedation, the right groin and lower extremity were prepped with Betadine and draped in a sterile fashion. One gram of Ancef was administered intravenously and following a protocol time-out, the skin and subcutaneous tissue along the proposed incisional area was preemptively infiltrated with 0.5% Marcaine with epinephrine. A curvilinear incision was performed within the right groin region through which the entire common femoral, proximal superficial and profunda femoral arteries were circumferentially mobilized. The patient was systemically heparinized with 5000 units. The distal external iliac artery was occluded with small Satinsky clamp and the superficial femoral artery and profunda occluded with double looped Vesseloops. The hemostatic sheath was removed and a vertical arteriotomy performed along the anterior surface of the common femoral and extended along the proximal superficial femoral lumen. A large boulder of atherosclerotic plaque filled the proximal common femoral lumen producing near complete occlusion. Extensive plaque extended distally into the origins of the superficial and profunda femoral arteries. The plaque was completely and cleanly endarterectomized. A bovine patch was secured to the endarterectomy incision with continuous 6-0 Prolene. Prior to placement of final sutures, the arterial lumen was appropriately flushed. Flow was reestablished as confirmed by Doppler signal. Prior to completion of the patch, angioplasty and a #3 Brisa catheter was advanced proximally and distally to ensure that no undetected luminal thrombus was present, and none was found. Heparin was reversed with 20 mg of protamine and strict hemostasis was achieved. The groin incision was closed with three separate layers of continuous 4-0 Monocryl, skin reapproximated with continuous subcuticular 5-0 Monocryl, reinforced with Steri-Strips and covered with sterile gauze. Instrument, needle and sponge counts were correct x2. At conclusion of the procedure, Doppler flow was robust, biphasic within the right pedal arteries. MD HENRI Buck/ROSY /4:28 PM /12:12 PM
[2017-07-16] MEDS: SODIUM CHLOR 0.9% 1000 ML INJ 1,000 ML IV SCH (12:38)
[2017-07-16] MEDS: HEPARIN INJ 1,000 UNITS in SODIUM CHLORID 0.9% 500 ML INJ 500 ML I-ARTERIAL SCH (12:45)
[2017-07-17] VITALS (27 sets, daily range): BP systolic 116–156; BP diastolic 61–79; PULSE 68–96; RESP 17–20; TEMP 97.4–98.2; O2SAT 97–100
[2017-07-17] MEDS: LEVOTHYROXINE SODIUM 75 MCG TAB PO SCH (06:00)
[2017-07-17 07:17] LABS: AUTOMATED NEUTROPHIL # 6.6 TH/MM3 (1.8-7.7); BASOPHIL % 0.3 % (0.0-2.0); EOSINOPHIL # 0.1 TH/MM3 (0-0.4); EOSINOPHIL % 1.5 % (0.0-4.0); HEMATOCRIT 34.2 % (35.0-46.0); HEMO FLAGS DIFF FINAL; LYMPH % 12.2 % (9.0-44.0); LYMPHOCYTE # 1.1 TH/MM3 (1.0-4.8); MEAN CELL VOLUME 98.6 FL (80.0-100.0); MEAN CORPUSCULAR HEMOGLOBIN 33.8 PG (27.0-34.0); MEAN CORPUSCULAR HGB CONC 34.3 % (32.0-36.0); MONO % 10.5 % (0.0-8.0); NEUT % 75.5 % (16.0-70.0); PLATELET COUNT 141 TH/MM3 (150-450); RED BLOOD COUNT 3.46 MIL/MM3 (4.00-5.30); WHITE BLOOD COUNT 8.7 TH/MM3 (4.0-11.0)
[2017-07-17 07:38] LABS: ALKALINE PHOSPHATASE 69 U/L (45-117); ALT (GPT) 14 U/L (10-53); ANION GAP 11 MEQ/L (5-15); AST (GOT) 21 U/L (15-37); BICARBONATE 23.7 MEQ/L (21.0-32.0); BLOOD UREA NITROGEN 7 MG/DL (7-18); CHLORIDE 107 MEQ/L (98-107); GLOMERULAR FILTRATION RATE 86 ML/MIN (>89); SODIUM (NA) 142 MEQ/L (136-145); TOTAL BILIRUBIN ADULT 0.7 MG/DL (0.2-1.0)
[2017-07-17 07:56] LABS: POTASSIUM 2.6 MEQ/L (3.5-5.1)
[2017-07-17 08:10] LABS: BACTERIA, URINE FEW /hpf; BLOOD, URINE LARGE (NEG); COMMENT (UR) CULTURE INDICATED; CULTURE IF INDICATED CULTURE INDICATED; GLUCOSE,URINE NEG (NEG); KETONE, URINE 40 mg/dL (NEG); NITRITE,URINE POS (NEG); PH, URINE 6.5 (5.0-8.5)
[2017-07-17 08:13] LABS: SQUAMOUS EPITHELIAL CELL URINE 10 /hpf (0-5); URINE COLOR DARK RED (YELLW/STRAW)
[2017-07-17] MEDS ORDERED: POTASSIUM CHLORIDE 20 MEQ CONTROLLED RELEASE TAB PO ONE (08:45)
[2017-07-17] MEDS ORDERED: D5W + KCL 20 MEQ INJ 1,000 ML IV ONE (09:00)
[2017-07-17] MEDS ORDERED: POTASSIUM CHLORIDE 20 MEQ PWD PACKET PO ONE (09:45)
[2017-07-17] MEDS: PROPRANOLOL HCL 10 MG TAB PO SCH ×2 (10:10→14:03)
[2017-07-17] MEDS: ASPIRIN EC 81 MG TABEC PO SCH (10:13)
[2017-07-17] MEDS: CLOPIDOGREL 75 MG TAB PO SCH (10:13)
[2017-07-17] MEDS: THIAMINE INJ 100 MG in SODIUM CHLORIDE 0.9% INJ 100 ML IV SCH (10:14)
[2017-07-17] MEDS: FAMOTIDINE 20 MG/2 ML VIAL IV PUSH SCH ×2 (10:14→20:35)
[2017-07-17] MEDS: SODIUM CHLORIDE 0.9% FLUSH 10 ML FLUSH IV FLUSH SCH ×2 (10:14→20:36)
[2017-07-17] MEDS: LEVOFLOXACIN 500 MG PREMIX INJ 100 ML IV SCH (10:15)
--- NOTE | 2017-07-17 10:39 | HHI.PR ---
Subjective Remarks Onset of confusion last night. Suspicions would include a urinary tract infection versus TPA related intracranial bleed. Her urinalysis is positive so UTI suspected. Antibiotics are started. This morning patient is complaining of bilateral blurred vision. Head CT scan discussed with the patient and her son. Objective Vital Signs Date Time Temp Pulse Resp B/P (MAP) Pulse Ox O2 Delivery O2 Flow Rate FiO2 07/17/17 08:00 90 07/17/17 07:15 98.2 82 17 117/66 (83) 99 07/17/17 07:00 88 07/17/17 06:00 82 07/17/17 05:00 77 07/17/17 04:01 70 07/17/17 04:00 98.2 77 20 133/62 (85) 97 07/17/17 03:00 94 07/17/17 02:00 94 07/17/17 01:00 88 07/17/17 00:00 98.1 96 20 156/79 (104) 97 07/17/17 00:00 96 07/16/17 23:00 94 07/16/17 22:00 74 07/16/17 21:00 96 07/16/17 20:00 96 07/16/17 20:00 98.2 96 18 164/96 (118) 96 07/16/17 19:00 94 07/16/17 18:27 98 Nasal Cannula 2.00 07/16/17 18:03 78 07/16/17 17:11 88 07/16/17 17:06 98.5 07/16/17 16:00 70 07/16/17 15:30 98.1 81 18 160/75 (103) 98 07/16/17 15:00 69 07/16/17 14:00 70 07/16/17 13:04 79 07/16/17 12:00 68 07/16/17 11:09 98.4 66 17 142/65 (90) 98 07/16/17 11:00 66 I/O 07/16/17 07/16/17 07/16/17 07/17/17 07/17/17 07/17/17 06:59 14:59 22:59 06:59 14:59 22:59 Intake Total 980 ml 105 ml 720 ml 240 ml Output Total 400 ml 500 ml 350 ml Balance 580 ml 105 ml 220 ml -110 ml Intake Oral 480 ml 720 ml 240 ml IV Total 500 ml 105 ml Output Urine Total 400 ml 500 ml 350 ml # Voids 3 # Bowel Movements 0 Result Diagram: 07/17/1764407/17/17644 Objective Remarks GENERAL: NAD, A&Ox3 HEAD: Normocephalic. NECK: Supple, trachea midline. No lymphadenopathy. EYES: No scleral icterus. No injection or drainage. CARDIOVASCULAR: Regular rate and rhythm without murmurs, gallops, or rubs. RESPIRATORY: Breath sounds equal bilaterally. No accessory muscle use. GASTROINTESTINAL: Abdomen soft, non-tender, nondistended. MUSCULOSKELETAL: No cyanosis, or edema. SKIN: Warm and dry. Bandage at left groin. NEURO: No focal neurological deficitis. A/P Problem List: (1) Claudication of both lower extremities ICD Code: I73.9 - Peripheral vascular disease, unspecified Assessment and Plan Assessment and Plan 81-year-old female admitted secondary to iliac artery occlusion. s/p mesenteric and right iliac angiogram/angioplasty s/p stent placement to Left common-external iliac junction for high-grade stenosis s/p unsuccessful thrombectomy attempt of right iliac stent occlusion s/p Intra arterial TPA infusion Doing well Vascular surgeon following Continue monitoring No signs of recurrent occlusion No signs of bleed Continue pain treatments Blurred vision Encephalopathy NOS CT of brain to rule out ischemic or hemorrhagic bleeds, given recent TPA Treat UTI Urinary tract infection Levaquin Follow cultures Hypertensive urgency Resolved Right MCA stroke in 2005 Right ICA stenosis s/p carotid endarterectomy Follow clinically Hypothyroidism Continue supplementation Follows in outpatient Hypertension Continue baseline treatment Propanolol is into 2 separate doses Dyslipidemia No change to baseline treatment Follows in outpatient Tobacco abuse COPD No COPD exacerbation Patient counseled to quit smoking DVT prophylaxis Deferred for now given recent TPA Dontae Michelle MD Jul 17, 2017 10:39
[2017-07-17] MEDS: HEPARIN INJ 1,000 UNITS in SODIUM CHLORID 0.9% 500 ML INJ 500 ML I-ARTERIAL SCH (12:45)
[2017-07-17] MEDS: SODIUM CHLOR 0.9% 1000 ML INJ 1,000 ML IV SCH (12:55)
[2017-07-17] MEDS: LACTOBACILLUS ACIDOPHILUS TAB PO SCH ×2 (14:03→17:36)
--- NOTE | 2017-07-17 16:37 | RADRPT ---
EXAM DATE/TIME: 07/17/2017 16:03 [facility] COMPARISON: No previous studies available for comparison. INDICATIONS : Confusion, vision changes. RADIATION DOSE: 32.96 CTDIvol (mGy) MEDICAL HISTORY : Cardiovascular disease. Hypertension. SURGICAL HISTORY : Appendectomy. Cholecystectomy.Hysterectomy. ENCOUNTER: Initial ACUITY: 1 day PAIN SCALE: 0/10 LOCATION: cranial TECHNIQUE: Multiple contiguous axial images were obtained of the head. Using automated exposure control and adj ustment of the mA and/or kV according to patient size, radiation dose was kept as low as reasonably a chievable to obtain optimal diagnostic quality images. DICOM format image data is available electro nically for review and comparison. FINDINGS: CEREBRUM: The ventricles are mildly prominent for age. There is bilateral cortical atrophy and chronic white ma tter changes. No evidence of midline shift, mass lesion, hemorrhage or acute infarction. No extra-a xial fluid collections are seen. POSTERIOR FOSSA: The cerebellum and brainstem are intact. The 4th ventricle is midline. The cerebellopontine angle i s unremarkable. EXTRACRANIAL: The visualized portion of the orbits is intact. SKULL: The calvaria is intact. No evidence of skull fracture. CONCLUSION: 1. No focal or acute intracranial hemorrhage. 2. Bilateral cortical atrophy with mild prominence of the ventricles. This may be related to patient' s bilateral cortical atrophy versus normal pressure hydrocephalus. This would need to be correlated w ith patient's physical and clinical exam. 3. Chronic appearing bilateral white matter changes. Dony Mena MD on July 17, 2017 at 16:33 Board Certified Radiologist. This report was verified electronically.
[2017-07-18] VITALS (18 sets, daily range): BP systolic 127–167; BP diastolic 62–85; PULSE 60–94; RESP 16–18; TEMP 97.1–98.3; O2SAT 98–99
[2017-07-18 06:26] LABS: AUTOMATED NEUTROPHIL # 6.1 TH/MM3 (1.8-7.7); BASOPHIL % 0.4 % (0.0-2.0); EOSINOPHIL # 0.1 TH/MM3 (0-0.4); EOSINOPHIL % 1.2 % (0.0-4.0); HEMATOCRIT 32.5 % (35.0-46.0); HEMO FLAGS DIFF FINAL; LYMPHOCYTE # 1.2 TH/MM3 (1.0-4.8); MEAN CORPUSCULAR HEMOGLOBIN 33.1 PG (27.0-34.0); MEAN CORPUSCULAR HGB CONC 33.7 % (32.0-36.0); MONO % 8.4 % (0.0-8.0); PLATELET COUNT 139 TH/MM3 (150-450); RED BLOOD COUNT 3.32 MIL/MM3 (4.00-5.30); RED CELL DISTRIBUTION WIDTH 15.5 % (11.6-17.2); WHITE BLOOD COUNT 8.2 TH/MM3 (4.0-11.0)
[2017-07-18] MEDS: LEVOTHYROXINE SODIUM 75 MCG TAB PO SCH (06:28)
[2017-07-18 06:50] LABS: ALKALINE PHOSPHATASE 63 U/L (45-117); ALT (GPT) 14 U/L (10-53); ANION GAP 8 MEQ/L (5-15); AST (GOT) 18 U/L (15-37); BICARBONATE 26.2 MEQ/L (21.0-32.0); BLOOD UREA NITROGEN 9 MG/DL (7-18); CHLORIDE 108 MEQ/L (98-107); GLOMERULAR FILTRATION RATE 81 ML/MIN (>89); SODIUM (NA) 142 MEQ/L (136-145); TOTAL BILIRUBIN ADULT 0.5 MG/DL (0.2-1.0)
[2017-07-18 06:59] LABS: POTASSIUM 2.9 MEQ/L (3.5-5.1)
[2017-07-18] MEDS: PROPRANOLOL HCL 10 MG TAB PO SCH ×2 (08:00→14:00)
[2017-07-18] MEDS ORDERED: POTASSIUM CHLORIDE 20 MEQ PWD PACKET PO ONE (08:30)
--- NOTE | 2017-07-18 08:50 | PD.RAD ---
Radiology Note Palpable pedal pulses bilaterally s/p stent iliac reconstruction and surgical right femoral endarterctomy. Expected bruising in right groin area with no hematoma. Limited ambulation probably from muscular weakness secondary to prolonged inactivity. PT initiated over the weekend. Report of UTI with confusion over weekend now treated with abx. Patient appears lucid and oriented this am. Encouraged OOB with assistance to maximize recovery and maintenance of vascular patency. OK to D/C from IR standpoint. Will f/u in [facility] in7-10 days Hayden Jin MD Jul 18, 2017 08:50
[2017-07-18] MEDS: THIAMINE INJ 100 MG in SODIUM CHLORIDE 0.9% INJ 100 ML IV SCH (09:00)
[2017-07-18] MEDS: SODIUM CHLORIDE 0.9% FLUSH 10 ML FLUSH IV FLUSH SCH (09:00)
[2017-07-18] MEDS ORDERED: LACT PO (09:03)
[2017-07-18] MEDS ORDERED: PLAV75TA29 PO (09:03)
[2017-07-18] MEDS ORDERED: PROP10TA6 PO (09:03)
[2017-07-18] MEDS ORDERED: LEVO500T8 PO (09:03)
[2017-07-18] MEDS ORDERED: POTA-163 PO (09:03)
[2017-07-18] MEDS: LEVOFLOXACIN 500 MG PREMIX INJ 100 ML IV SCH (10:00)
[2017-07-18] MEDS: LACTOBACILLUS ACIDOPHILUS TAB PO SCH ×2 (10:03→12:08)
[2017-07-18] MEDS: CLOPIDOGREL 75 MG TAB PO SCH (10:03)
[2017-07-18] MEDS: ASPIRIN EC 81 MG TABEC PO SCH (10:03)
[2017-07-18] MEDS: FAMOTIDINE 20 MG/2 ML VIAL IV PUSH SCH (10:04)
[2017-07-18] MEDS: POTASSIUM CHLORIDE 25 MEQ EFFERVESCENT TAB PO PRN ×2 (10:05→12:08)
[2017-07-18] MEDS: HEPARIN INJ 1,000 UNITS in SODIUM CHLORID 0.9% 500 ML INJ 500 ML I-ARTERIAL SCH (12:36)
[2017-07-18] MEDS: SODIUM CHLOR 0.9% 1000 ML INJ 1,000 ML IV SCH (13:00)
--- NOTE | 2017-07-18 14:51 | HHI.DS ---
Discharge Summary Admission Date Jul 14, 2017 at 12:52 Discharge Date: Jul 18, 2017 Admitting Diagnosis (1) Claudication of both lower extremities ICD Code: I73.9 - Peripheral vascular disease, unspecified Procedures Right iliac thrombectomy Right iliac stenting Brief History - From Admission Admitted for claudication symptoms in both lower extremities. CBC/BMP: 07/18/17 0605 07/18/17 1244 Significant Findings Laboratory Tests Test 07/17/17 06:10 07/17/17 06:45 07/17/17 13:10 07/18/17 06:05 Urine Turbidity MARKED (CLEAR) Urine Protein 300 mg/dL (NEG-TRACE) Urine Ketones 40 mg/dL (NEG) Urine Occult Blood LARGE (NEG) Urine Nitrite POS (NEG) Urine Leukocyte Esterase SMALL (NEG) Urine WBC Clumps OCC (NONE) Urine Bacteria FEW /hpf (NONE) Red Blood Count 3.46 MIL/MM3 (4.00-5.30) 3.32 MIL/MM3 (4.00-5.30) Hematocrit 34.2 % (35.0-46.0) 32.5 % (35.0-46.0) Platelet Count 141 TH/MM3 (150-450) 139 TH/MM3 (150-450) Neutrophils (%) (Auto) 75.5 % (16.0-70.0) 75.0 % (16.0-70.0) Monocytes (%) (Auto) 10.5 % (0.0-8.0) 8.4 % (0.0-8.0) Albumin 2.9 GM/DL (3.4-5.0) 2.4 GM/DL (3.4-5.0) Potassium Level 2.6 MEQ/L (3.5-5.1) 3.2 MEQ/L (3.5-5.1) 2.9 MEQ/L (3.5-5.1) Estimat Glomerular Filtration Rate 86 ML/MIN (>89) 81 ML/MIN (>89) Hemoglobin 11.0 GM/DL (11.6-15.3) Total Protein 5.8 GM/DL (6.4-8.2) Chloride Level 108 MEQ/L (98-107) Test 07/18/17 12:44 Hospital Course Mrs. Chávez is an 81-year-old female. She was admitted secondary to claudication of both of her lower extremities. She was found to have a right iliac thrombus. Thrombectomy was performed. She also had stenting of the right iliac artery while here. Postop she has some confusion and weakness. Urinary tract infection and CT were performed. She had a UTI, CAT scan was within normal limits. Urinary tract infection has been treated. She is also been dealing with some hypokalemia but this has stabilized and today she is medically cleared and stable for discharge to an inpatient rehabilitation setting to continue physical therapy. Pt Condition on Discharge: Good Discharge Disposition: Rehab Inpatient Discharge Time: > 30 minutes Discharge Instructions DIET: Follow Instructions for: As Tolerated, No Restrictions Activities you can perform: Regular-No Restrictions Follow up Referrals: PCP Follow-up - 2 Weeks Vascular Surgery - 2 Weeks New Medications: Levofloxacin (Levofloxacin) 500 Mg Tablet 500 MG PO DAILY for Infection, #5 TAB 0 Refills Potassium Chloride ER (Potassium Chloride ER) 20 Meq Tab 20 MEQ PO BID for Electrolyte Replacement for 5 Days, #10 TAB 0 Refills Clopidogrel (Plavix) 75 Mg Tab 75 MG PO DAILY for Blood Clot Prevention, #30 TAB Lactobacillus Acidophilus (Acidophilus/l-Sporogenes) 35 Million Cell-25 Million Cell Tab 1 TAB PO TID for Probiotic, #30 TAB Propranolol (Propranolol) 10 Mg Tab 5 MG PO DAILY@0800,1400 for Tremor, #30 TAB Continued Medications: Anastrozole (Anastrozole) 1 Mg Tab 1 MG PO DAILY for Breast Cancer, #30 TAB 0 Refills Aspirin (Aspirin Low Dose) 81 Mg Chew 81 MG CHEW DAILY, TAB 0 Refills Gabapentin (Gabapentin) 100 Mg Cap 100 MG PO BID, #60 CAP 0 Refills Levothyroxine (Levothyroxine) 75 Mcg Tab 75 MCG PO DAILY for Thyroid, #30 TAB 0 Refills Discontinued Medications: Propranolol (Propranolol) 10 Mg Tab 10 MG PO DAILY, #60 TAB 0 Refills Dontae Michelle MD Jul 18, 2017 14:51
== END 2017-07-18 16:40 | DRG 253 ==
LOC: HROP 08:02 → HRIP 08:14 → HROP 12:51 → N03B 12:52 → HCPC 07-15 17:40
PROVIDERS: ADMIT Radiology Body Imaging; ATTEND Surgery Vascular Surgery
PROC: 047D3DZ Dilation of Left Common Iliac Artery with Intraluminal Device, Percutaneous Approach (ICD-10-PCS; principal; 2017-07-14)
PROC: 3E05317 Introduction of Other Thrombolytic into Peripheral Artery, Percutaneous Approach (ICD-10-PCS; 2017-07-14)
PROC: B41G1ZZ Fluoroscopy of Left Lower Extremity Arteries using Low Osmolar Contrast (ICD-10-PCS; 2017-07-14)
PROC: 047D3DZ Dilation of Left Common Iliac Artery with Intraluminal Device, Percutaneous Approach (ICD-10-PCS; 2017-07-15)
PROC: 047C3DZ Dilation of Right Common Iliac Artery with Intraluminal Device, Percutaneous Approach (ICD-10-PCS; 2017-07-15)
PROC: 04CK0ZZ Extirpation of Matter from Right Femoral Artery, Open Approach (ICD-10-PCS; 2017-07-15)
PROC: 04UK0KZ Supplement Right Femoral Artery with Nonautologous Tissue Substitute, Open Approach (ICD-10-PCS; 2017-07-15)
DX: I74.5 Embolism and thrombosis of iliac artery (principal); T82.868A Thrombosis due to vascular prosthetic devices, implants and grafts, initial encounter; I74.3 Embolism and thrombosis of arteries of the lower extremities; N39.0 Urinary tract infection, site not specified; I16.0 Hypertensive urgency; J44.9 Chronic obstructive pulmonary disease, unspecified; E03.9 Hypothyroidism, unspecified; E78.5 Hyperlipidemia, unspecified; I10 Essential (primary) hypertension; F17.210 Nicotine dependence, cigarettes, uncomplicated; I70.201 Unspecified atherosclerosis of native arteries of extremities, right leg; E87.6 Hypokalemia; G25.0 Essential tremor; R41.0 Disorientation, unspecified; Y83.1 Surgical operation with implant of artificial internal device as the cause of abnormal reaction of the patient, or of later complication, without mention of misadventure at the time of the procedure; Z86.73 Personal history of transient ischemic attack (TIA), and cerebral infarction without residual deficits
CPT/HCPCS: 36246; 37211; 37220; 37221; 70450; 75630; 76937; 80048; 80053; 81001; 84100; 84132; 85025; 85347; 85384; 85610; 85730; 87077; 87086; 87186; 87641; C1725; C1757; C1769; C1876; C1887; C1894; J0360; J1644; J1956; J2250; J2270; J2997; J3010; J3411; J3480; J7030; J7040; J7120; Q9967